=== PATIENT | female | born 1980 | race Caucasian/White ===

== ENCOUNTER 2022-06-25 12:05 | Outpatient (CLI) | payer SELFPAY ==
--- NOTE | 2022-06-25 12:15 | CRLHL7_ITS ---
For Patients: As a result of the Cures Act, medical imaging exams and procedure reports are released immediately into your electronic medical record. You may view this report before your referring provider. If you have questions, please contact your health care provider. INDICATION: First trimester scan, establish dates. COMPARISON: None. TECHNIQUE: Real-time mullins-scale imaging of the pelvis was performed. FINDINGS: Single living intrauterine is present. heart rate 150 beats per minute. Cervix is closed measuring 4.0 cm. Sonographic gestational age 14 weeks 6 days and sonographic due date 12/18/2022. IMPRESSION: Single living intrauterine with sonographic gestational age 14 weeks 6 days and sonographic due date 12/18/2022. Dictated by César Juárez MD @ 06/25/2022 12:55:44 PM (Electronically Signed)
== END 2022-06-25 12:06 | disposition home or self-care (01) ==
LOC: US 12:07
PROVIDERS: Visit Provider Registered Nurse
DX: Z34.92 Encounter for supervision of normal pregnancy, unspecified, second trimester (principal); Z3A.15 15 weeks gestation of pregnancy
CPT/HCPCS: 76815

== ENCOUNTER 2022-06-25 13:34 | Outpatient (CLI) | payer SELFPAY ==
[2022-06-25 21:32] LABS: Chlamydia DNA Amplified* NOT DETECTED (No Detected); GC DNA Amplified* NOT DETECTED (No Detected)
== END 2022-06-25 13:35 | disposition home or self-care (01) ==
PROVIDERS: Visit Provider Registered Nurse
DX: Z34.92 Encounter for supervision of normal pregnancy, unspecified, second trimester (principal); Z3A.15 15 weeks gestation of pregnancy
CPT/HCPCS: 0353U; 86592; 86703; 86762; 86787; 86803; 86850; 86900; 86901; 87086; 87340; 87491; 87591

== ENCOUNTER 2022-11-19 13:02 | Outpatient (CLI) | payer SELFPAY ==
--- NOTE | 2022-11-19 13:00 | CRLHL7_ITS ---
For Patients: As a result of the Century Cures Act, medical imaging exams and procedure reports are released immediately into your electronic medical record. You may view this report before your referring provider. If you have questions, please contact your health care provider. INDICATION: Advanced maternal age TECHNIQUE: Real time mullins scale imaging of the fetus was performed. COMPARISON: 07/31/2022 FINDINGS: Sonographic imaging demonstrates a single living intrauterine gestation. Fetus demonstrates a regular cardiac rate of 138 beats per minute. Fetus has a vertex position. The placenta lies left anterior. Amniotic fluid volume appears normal and there is a single deepest pocket of 5.2 cm. The estimated weight is 2685gm which lies at the 39th %. On the prior OB ultrasound dated 07/31/2022 the estimated weight was at the 9th percentile. BPD 71st percentile. HC 32nd percentile. AC 69th percentile. FL less than 3rd percentile. The fetus was active and demonstrated normal breathing movements. There was normal flexion and extension of the trunk and extremities. IMPRESSION: Normal biophysical profile score 8/8. Sonographic gestational age 35 weeks 4 days and sonographic due date 12/20/2022. Good correlation with dates. Normal interval growth. Estimated weight 39th percentile. Abdominal circumference 69th percentile. Femur length less than 3rd percentile. Dictated by César Juárez MD @ 11/20/2022 8:32:07 AM (Electronically Signed)
== END 2022-11-19 13:03 | disposition home or self-care (01) ==
LOC: US 13:03
PROVIDERS: Visit Provider Advanced Practice Midwife
DX: O09.523 Supervision of elderly multigravida, third trimester (principal); Z3A.35 35 weeks gestation of pregnancy
CPT/HCPCS: 76816; 76819

== ENCOUNTER 2022-11-19 14:29 | Outpatient (CLI) | payer SELFPAY | END 2022-11-19 14:30 | disposition home or self-care (01) | PROVIDERS: Visit Provider Advanced Practice Midwife | DX: O09.523 Supervision of elderly multigravida, third trimester (principal); Z3A.35 35 weeks gestation of pregnancy | CPT/HCPCS: 87081; 87653 ==

== ENCOUNTER 2022-12-18 07:09 | Inpatient (IN) | payer SELFPAY ==
[2022-12-18] VITALS (26 sets, daily range): BP systolic 95–133; BP diastolic 54–68; PULSE 75–105; RESP 16–18; TEMP 36.3–37.1; O2SAT 92–95; BMI 30.8
--- NOTE | 2022-12-18 08:12 | P.LDBA_ITS ---
Subjective History of Present Illness Date Seen: 12/18/22 Narrative: Patient is being admitted to Labor and Delivery for elective induction of labor. She is a 42 year old at 40.0 weeks gestation. Her full history and physical was dictated by AMY Higgins on 11/28/2022. Please see this for details. Specific Issues/Plans G 8 P 7007 (age range 2-18 years old) : Ashok H&P done by AMY Higgins on 11/28/2022 1. Grand multipara. Patient states most of her labors last about 5 hours in total. IV in labor, consider AMTSL 2. AMA. Will be 42 at time of delivery. Declines genetic testing. Recommend level 2 ultrasound at 20 weeks: completed Growth ultrasound between 32 and 36 weeks: ordered w/ BPP - 10/29, EFW 39%ile Weekly NSTs starting at 36 weeks: declines Recommend delivery between 39 and 40 weeks: Declines 3. History of gestational diabetes with 3rd . Hemoglobin A1c: 4.8 Consider early GDM testing between 16 and 20 weeks: declined Home glucose at 28 weeks: 1 week of home testing w/ 3 tests per day completed, WNL 4. Rubella non-immune. Rec. PP vaccine. 5. Precipitous delivery, tx w/ last and delivered on admit. Home Technical Services Coordinator was concerned about uterine prolapse, did pelvic floor PT after and denies any issues 12/17: No notable prolapse with cervical exam 6. YOANA changed at 20wk scan to ovulation date to 12/[address] Bashir. EFW at YOANA of 12/14 was 9% but with YOANA change 27%. Consider growth US with any fundal height lag. COVID: Not vaccinated. Recommended. Flu: TDAP: declines 32wk Mental Health: 10/22/2022 34wk Hgb: 13.6 11/19/2022 OB - Problem Based A/P Additional Plan (1) Elective induction of labor planned: Status: Acute (2) 40 weeks gestation of : Status: Acute Plan Assessment:?? at 40.0 weeks gestation?? GBS negative??? Labor type: Induced, Early labor? Category 1 FHR pattern.? Plan:?? * ?Admit to L & D? * IV access: SL for grand multipara * Monitoring per policy: intermittent? * Candidate for analgesia of choice.? Planning unmedicated for pain management * Desires waterbirth.? Consent signed and Hep C negative * Expectant management at this time * Patient encouraged to reposition and ambulate to promote physiologic labor and . * Anticipate ? Delivery/Labor/Induction Plan Plan: expectant management and induction Induction method: AROM OB Exam Physical Exam Vital signs: Temp Pulse BP Pulse Ox 97.7 F 82 109/55 L 94 12/18/22 07:37 12/18/22 07:37 12/18/22 07:37 12/18/22 07:37 Narrative: Vitals Reviewed Constitutional:? Alert and oriented x3 HEENT:? Normocephalic, atraumatic Neck:? Supple Lungs:? Clear to auscultation bilaterally Heart:? Regular rate and rhythm, no murmur, rub or gallop Abdomen:? Soft, nontender, and gravid. Vertex by Kristopher's, confirmed with cervical exam. Extremities:? No edema or erythema Detailed Labor and Delivery Exam Patient Gravid: Yes Dilation (cm): 1 Effacement (%): 80 Cervix position: anterior Consistency: soft Contraction Frequency: rare Contraction duration (sec): 60 Tachysystole: No Contraction intensity: Mild Fetus (Single) Station: -1 Amniotic Membrane Status: AROM (with FSE) Heart Rate Baseline: 125 Monitor Accelerations: Present Monitor Decelerations: None Advertising Photographer Variability: Moderate (6-25)
[2022-12-18 08:32] LABS: Basophils Absolute Auto 0.01 K/uL (0.00-0.30); Basophils Percent Auto 0.1 % (0.0-3.0); Eosinophils Absolute Auto 0.08 K/uL (0.00-0.50); Eosinophils Percent Auto 0.9 % (0.0-7.0); Hematocrit 39.9 % (33.0-51.0); Hemoglobin* 13.8 gm/dL (12.0-16.0); Immature Granulocytes Abs Auto 0.03 K/uL (0.00-0.30); Immature Granulocytes Pct Auto 0.3 %; Lymphocytes Percent Auto 16.1 % (20-44); Mean Corpuscular HGB Conc 35 gm/dL (32-36); Mean Corpuscular Hemoglobin 30 pg (26-34); Mean Corpuscular Volume 86 fL (80-100); Monocytes Percent Auto 6.8 % (0.0-11.0); Neutrophils Percent Auto 75.8 % (42.0-72.0); Platelet Count* 168 K/uL (140-440); RDW Coefficient of Variation % 13.6 % (11.5-15.5); Red Blood Count 4.63 m/uL (4.00-5.20); White Blood Count* 8.83 K/uL (4.50-11.00)
[2022-12-18 08:33] LABS: Slide Review Reflex No
--- NOTE | 2022-12-18 10:10 | PM.OBPNL ---
Subjective Date Seen: 12/18/22 Narrative: ?Aarti is not reporting any increase in contractions or leaking of fluid. She noted small amount of spotting since last evaluation. ?her is with her for support. ?Discussed options for induction of labor including, continued waiting, IV Pitocin and vaginal Cytotec. She is agreeable to adding IV Pitocin at this time with the possibility of AROM once fetus is lower in pelvis. She would like to continue with movement and breathing for comfort and pain management. Planning a waterbirth.? Objective Exam: VSS, afebrile General Appearance:? Calm, cooperative. ?No acute distress. ? Psychiatric Exam: Alert and oriented, appropriate affect Abdomen: Gravid Ctx: ?rare and mild in intensity FHTs:intermittently monitored Membranes: attempted AROM with FSE earlier today, no significant leaking of fluid noted since. Vital Signs: Last Vital Signs Temp 97.8 F 12/18/22 09:30 Pulse 88 12/18/22 09:30 BP 119/61 12/18/22 09:30 Pulse Ox 94 12/18/22 07:37 Contractions Contraction intensity: Mild Assessment Station: -1 Plan Plan: Assessment:?? at 40.0 gestation?? GBS negative Patient is coping well with challenges of labor.?? Labor type: Induced, Early labor? Plan:?? Start IV Pitocin per protocol. Continuous monitoring while on IV Pitocin Continue with routine intrapartum cares as ordered.?? Patient encouraged to move and change positions to promote physiologic labor and .?? Nonpharmacologic comfort measures per patient preference. Candidate for analgesia of choice if desired. Patient planning waterbirth. Anticipate progress to NVD. ?
[2022-12-18] MEDS: OXYTOCIN 30 unit/500 ML in NS 30 UNIT/500 ML BAG IVPB (11:57)
[2022-12-18] MEDS: LACTATED RINGERS 1000 ML 1,000 ML 125 ML IV (11:58)
--- NOTE | 2022-12-18 18:37 | W.PM.OBVAGDE ---
Documented by User: Stacey Dimas CNM 12/18/22 18:54 OB Procedure Vag Delivery Mother Details Mother Details: The patient is a 42 year-old, 8, now Para 8, admitted on 12/18/22 at 40.0 Days gestation for induction of labor for AMA. She preferred to try AROM first, then was started on IV Pitocin for induction and progressed normally. : 8 Para: 8 Weeks Gestation: 40.0 Admission Date: 12/18/22 Additional Details Amniotic Membrane Status: AROM (with FSE) Amniotic Membrane Rupture Date: 12/18/22 Amniotic Membrane Rupture Time: 08:07 Amniotic Membrane Fluid Description: Clear Analgesia/Anesthesia Type: None Waterbirth: Yes Pitcoin: Yes Intrapartal Events: Labor Induction Induction Method: per pitocin protocol and AROM Labor Onset: 14:08 Complete: 17:56 Pushin:56 Heart: heart tones during second stage were continually monitored per protocol. FHR 110-120 with moderate variability, no decels. Delivery Details Delivery Date: 12/18/22 Delivery Time: 18:00 Route of delivery: Infant Gender: Male Infant Viability: Alive; Heart Rate Present Position at Delivery: OA Delivery Details: Patient progressed normally with AROM and Pitocin. AROM noted at 0807 with clear fluid. Patient was complete at 1756 and pushing at 1756. of a viable male at 1800 in semi fowlers in the tub. Vertex delivered OA. No nuchal cord or shoulder. Body delivered easily and without incident. Infant passed to mothers abdomen with a vigorous cry. Cord was clamped and cut at > 5 minutes. APGARS were 8 at one minute and 9 at five minutes respectively. Mouth was bulb suctioned. Intact placenta with a 3 vessel cord delivered spontaneously at 1826. Fundus firm. Perineum intact minor abrasion not repaired. EBL 316 cc. Mother and baby stable; mother plans to breastfeed. Infant weight pending. 1 Minute Interval Total Score: 8 5 Minute Interval Total Score: 9 Additional Details Shoulder Dystocia: No Placenta Delivery Time: 18:26 Placental Delivery Description: Spontaneous Procedure Done: Global Blood Loss: 316 Laceration: None Blood Loss Measurement Type: EBL Bakri Used: No Sponge/Need Count Correct: Yes Cord Vessel Description: 3 Vessels Event Summary Status: Mother and were stable after delivery. Disposition: floor Documented by User: Sagrario Ferrera CNM 12/18/22 18:57 OB Procedure Vag Delivery Delivery Details Delivery Details: Patient progressed normally with AROM and Pitocin. AROM noted at 0807 with clear fluid. Patient was complete at 1756 and pushing at 1756. of a viable male at 1800 in semi fowlers in the tub. Vertex delivered OA. No nuchal cord or shoulder. Body delivered easily and without incident. passed to mothers abdomen with a vigorous cry. Cord was clamped and cut at > 5 minutes. APGARS were 8 at one minute and 9 at five minutes respectively. Mouth was bulb suctioned. Intact placenta with a 3 vessel cord delivered spontaneously at 1826. Fundus firm. Perineum intact minor abrasion not repaired. QBL 116 and ELB 200 for total of 316 cc. Mother and baby stable; mother plans to breastfeed. weight pending. Additional Details Episiotomy Description: None
[2022-12-18] MEDS: LANOLIN CREAM 1 APPLIC TOPICAL (23:41)
[2022-12-18] MEDS: IBUPROFEN 600 MG TABLET PO (23:41)
[2022-12-19 03:10] VITALS: BP 104/66; PULSE 94; RESP 18; TEMP 36.6; O2SAT 96
--- NOTE | 2022-12-19 07:26 | PM.OBDSVD1 ---
DS: Providers Provider Date Seen: 12/19/22 Date of admission: 12/18/22 07:09 Primary care physician: Not a Local Provider Admitting Clinician: Sagrario Ferrera CNM Attending Physician on discharge: AMY Elise with Stacey Dimas CNM Date of Discharge: 12/19/22 DS: Diagnosis Discharge Diagnosis (1) care and examination immediately after delivery: Status: Acute (2) Lactating mother: Status: Acute Exam Narrative: Exam Narrative: VSS, afebrile GENERAL APPEARANCE: ?normal affect, alert, no distress MOOD: ?appropriate HEENT: normocephalic, neck supple, full ROM CHEST: ?Symmetrical chest wall movement. ?Normal respiratory effort. ?Clear to auscultation HEART: ?regular rate and rhythm ABDOMEN: ?soft, non-tender. Uterine fundus is firm, U/1 Umbilicus, Midline and is appropriate for the stage of recovery. ?Bowel sounds present. PERINEUM: ?mild edema of the perineum, there is no laceration. EXTREMITIES: ?normal and no edema Const: Vital Signs, click to edit/add: Vital Signs - 24 hr 12/18/22 07:37 12/18/22 07:37 12/18/22 07:37 Temperature Pulse Rate Pulse Rate [Pulse Oximeter] Respiratory Rate Blood Pressure 109/55 L Blood Pressure [Le ft Arm] Pulse Oximetry 95 94 [facility] 07:37 12/18/22 07:37 12/18/22 09:30 Temperature 97.7 F Pulse Rate 82 88 Pulse Rate [Pulse Oximeter] Respiratory Rate Blood Pressure 119/61 Blood Pressure [Le ft Arm] Pulse Oximetry [facility] 12/[facility]/22 09:30 12/18/22 10:21 12/18/22 10:21 Temperature 97.8 F 98.7 F Pulse Rate 80 Pulse Rate [Pulse Oximeter] Respiratory Rate Blood Pressure 109/60 Blood Pressure [Le ft Arm] Pulse Oximetry [facility] 12/18/22 11:30 12/18/22 11:30 12/18/22 12:28 Temperature 98.1 F Pulse Rate 89 Pulse Rate [Pulse Oximeter] Respiratory Rate Blood Pressure 120/62 Blood Pressure [Le ft Arm] Pulse Oximetry 94 [facility] 12/18/22 12:29 12/18/22 12:32 12/18/22 12:32 Temperature 97.7 F Pulse Rate 93 Pulse Rate [Pulse Oximeter] Respiratory Rate Blood Pressure 101/55 L Blood Pressure [Le ft Arm] Pulse Oximetry 94 [facility]/18/22 13:50 12/18/22 13:50 12/18/22 15:10 Temperature 97.7 F Pulse Rate 95 105 H Pulse Rate [Pulse Oximeter] Respiratory Rate Blood Pressure 133/66 130/68 Blood Pressure [Le ft Arm] Pulse Oximetry Oxygen Delivery [facility] 12/18/22 15:10 12/18/22 15:57 12/18/22 15:57 Temperature 97.7 F 97.4 F L Pulse Rate 94 Pulse Rate [Pulse Oximeter] Respiratory Rate Blood Pressure 119/61 Blood Pressure [Le ft Arm] Pulse Oximetry Oxygen Delivery [facility] 12/18/22 17:09 12/18/22 17:09 12/18/22 18:43 Temperature 97.7 F Pulse Rate 94 88 Pulse Rate [Pulse Oximeter] Respiratory Rate Blood Pressure 129/64 116/59 L Blood Pressure [Le ft Arm] Pulse Oximetry Oxygen Delivery [facility] 12/18/22 19:00 12/18/22 19:13 12/18/22 19:15 Temperature Pulse Rate 78 86 Pulse Rate [Pulse Oximeter] Respiratory Rate 16 Blood Pressure 106/55 L 111/57 L Blood Pressure [Le ft Arm] Pulse Oximetry Oxygen Delivery [facility] 12/18/22 19:28 12/18/22 19:30 12/18/22 19:43 Temperature Pulse Rate 75 83 Pulse Rate [Pulse Oximeter] Respiratory Rate 16 Blood Pressure 95/54 L 100/58 L Blood Pressure [Le ft Arm] Pulse Oximetry Oxygen Delivery [facility] 12/18/22 19:45 12/18/22 19:58 12/18/22 20:00 Temperature Pulse Rate 97 Pulse Rate [Pulse Oximeter] Respiratory Rate 16 16 Blood Pressure 113/59 L Blood Pressure [Le ft Arm] Pulse Oximetry Oxygen Delivery [facility] 12/18/22 20:13 12/18/22 20:15 12/18/22 20:28 Temperature Pulse Rate 89 97 Pulse Rate [Pulse Oximeter] Respiratory Rate 16 Blood Pressure 112/59 L 106/54 L Blood Pressure [Le ft Arm] Pulse Oximetry Oxygen Delivery [facility] 12/18/22 20:30 12/18/22 23:17 12/19/22 03:10 Temperature 97.8 F 98 F Pulse Rate Pulse Rate [Pulse Oximeter] 102 H 94 Respiratory Rate 16 18 18 Blood Pressure Blood Pressure [Le ft Arm] 99/57 L 104/66 Pulse Oximetry 92 96 Oxygen Delivery Me thod Room Air Room Air Documenting provider has reviewed patient's vital signs: yes OB - DS: Summary Hospital Course Hospital Course: The patient is a 42 year old G 8 P 8 at 40.0 weeks gestation that was admitted to the [facility] on 12/18/22 for elective induction. She had an uncomplicated vaginal delivery. She delivered a viable male infant. The patient feels well. ?The pain is well controlled with current medications. ?She has no new complaints. ?She is breast feeding and reports things are going well. the patient has done well.? Vitals have been stable.? She has remained afebrile.? Has a good appetite, is tolerating a general diet. ?She is voiding without difficulty.? She is passing gas and has not yet had a bowel movement.? She is ambulating and denies any dizziness.? Has small amount of rubra lochia. She is planning no control for prevention. plan: Discharge home with baby. Follow up in 2 weeks and 6 weeks. , may see if needed Peripartum Data delivery method: Vaginal Laceration description: None complications: none [place] Infant Gender: Male Discharge Plan: Home Status at Discharge Functional status at discharge: independent ambulation Overall status at discharge: patient is progressing back to baseline Time Spent with Patient Time attestation: Total time spent providing and/or coordinating discharge services: Time spent: Less than 30 minutes Discharge Plan Discharge Disposition: Home, Self-Care Date of Admission: 12/18/22 07:09 Attending Provider on Discharge: Kathleen Roberto Primary Care Provider: Provider,Not a Local Condition: Stable Anticipated Discharge Date/Time: 12/19/22 19:00 Discharge Medications: New docusate sodium 100 mg Capsule 100 mg PO DAILY Qty: 90 0RF ibuprofen 600 mg Tablet 600 mg PO Q6H PRNQty: 60 0RF acetaminophen 500 mg Tablet 1,000 mg PO Q6H PRNQty: 0 0RF Continued ferrous gluconate [Ferate] 240 mg (27 mg iron) tablet 240 mg PO QDAY Discharge Orders: Discharge Order (Routine); Ordered 12/19/22 Ordered By: Stacey Dimas Patient Education: OB Over the Counter Medication Information, OB Vaginal/Breast Feeding Additional Instructions: Discharge instructions were reviewed with the patient including signs and symptoms of infection and home going medications Nothing vaginally for 6 weeks: no tampons or intercourse Do not drive while taking narcotic pain medication(s) Off Work or School for 8 weeks 2-week visit: discuss infant feeding concerns, review control options and screen for anxiety/depression. 6-week visit for an annual exam. consultation services are available to all mothers and babies for the first year after delivery.? To make an appointment, please call [phone]. Activity Level: Activity as Tolerated Discharge Diet: Regular Follow Up Appointments: [facility] [Provider Group] Forms: [employer] Info Instructions
[2022-12-19 08:50] VITALS: BP 98/62; PULSE 84; RESP 18
[2022-12-19] MEDS: IBUPROFEN 600 MG TABLET PO (09:01)
[2022-12-19] MEDS: DOCUSATE SODIUM 100 MG CAPSULE PO (09:01)
[2022-12-19 12:07] VITALS: BP 105/58; PULSE 94; RESP 18
[2022-12-19 16:29] VITALS: BP 110/68; PULSE 94; RESP 18; TEMP 36.6
== END 2022-12-19 18:40 | disposition home or self-care (01) | DRG 807 ==
PROVIDERS: Admitting Provider Advanced Practice Midwife; Visit Provider Advanced Practice Midwife
DX: O80 Encounter for full-term uncomplicated delivery (principal); Z37.0 Single live birth; Z3A.40 40 weeks gestation of pregnancy; Z86.32 Personal history of gestational diabetes
CPT/HCPCS: 36415; 85025; 86850; 86900; 86901; A9270; J7120